=== PATIENT | female | born 1975 ===

== ENCOUNTER 2017-08-26 07:55 | Emergency (ER) | payer BC, OTHER ==
[2017-08-26 08:10] VITALS: BP 106/65; PULSE 63; RESP 16; TEMP 98.8; O2SAT 100; BMI 28.5
--- NOTE | 2017-08-26 08:48 | ED PDOC ---
Lower Extremity Pain/Injury Time Seen by Provider: 08/26/17 08:21 Chief Complaint (Nursing): Lower Extremity Problem/Injury Chief Complaint (Provider): Lower Extremity Problem/Injury History Per: Patient History/Exam Limitations: no limitations Onset/Duration Of Symptoms: Other (x2 weeks) Current Symptoms Are (Timing): Still Present Additional Complaint(s): 41 y/o female presents to the ED for evaluation right knee and right ankle injury s/p fall x 2 weeks. Reports inversion injury to the right ankle followed by fall on right knee. Patient has been ambulating and going to work but pain still continues. Denies any further medical complaints. PMD: Sahil Jimenez MD - Knee Description Of Injury: Fell - Ankle/Foot Description Of Injury: Fell Past Medical History Reviewed: Historical Data, Nursing Documentation, Vital Signs Vital Signs: Last Vital Signs Temp 98.8 F 08/26/17 08:04 Pulse 63 08/26/17 08:04 Resp 16 08/26/17 08:04 BP 106/65 08/26/17 08:04 Pulse Ox 100 08/26/17 08:04 - Medical History PMH: Denies: Chronic Kidney Disease Other PMH: Prediabetes - Surgical History Surgical History: ( x2) - Family History Family History: States: Unknown Family Hx - Social History Current smoker - smoking cessation education provided: No Alcohol: None Drugs: Denies - Home Medications Home Medications: Ambulatory Orders Medication Instructions Recorded oxyCODONE/Acetaminophen [Percocet 1 tab PO Q4 PRN #0 tab 02/13/15 5/325 mg Tab] oxyCODONE/Acetaminophen [Percocet 1 ea PO Q6 PRN #10 tab 04/27/16 5/325 mg Tab] Naproxen [Naprosyn] 500 mg PO Q12H #20 tab 08/26/17 - Allergies Allergies/Adverse Reactions: Allergies Allergy/AdvReac Type Severity Reaction Status Date / Time chickpeas Allergy RASH Uncoded 04/27/16 14:46 Review of Systems ROS Statement: Except As Marked, All Systems Reviewed And Found Negative (As per HPI, otherwise negative) Musculoskeletal: Positive for: Leg Pain (Right knee and right ankle pain) Physical Exam - Reviewed Nursing Documentation Reviewed: Yes Vital Signs Reviewed: Yes - Physical Exam Appears: Positive for: Non-toxic, No Acute Distress Head Exam: Positive for: ATRAUMATIC, NORMAL INSPECTION, NORMOCEPHALIC Skin: Positive for: Normal Color, Warm, Dry Eye Exam: Positive for: EOMI, Normal appearance, PERRL ENT: Positive for: Normal ENT Inspection Neck: Positive for: Normal, Painless ROM, Supple Cardiovascular/Chest: Positive for: Regular Rate, Rhythm. Negative for: Murmur Respiratory: Positive for: Normal Breath Sounds. Negative for: Accessory Muscle Use, Respiratory Distress Gastrointestinal/Abdominal: Positive for: Normal Exam, Soft. Negative for: Tenderness Back: Positive for: Normal Inspection Neurologic/Psych: Positive for: Alert, enrollment representative II-XII, Oriented (x3). Negative for : Motor/Sensory Deficits Comments: Right knee: (+)Mild ecchymosis near patellar region, (+) full ROM (-) swelling, (-) deformity, (-) instability Right ankle: (-) swelling, (-) ecchymosis, (-)tenderness Right foot: (-) no lateral swelling, (-) tenderness - ECG O2 Sat by Pulse Oximetry: 100 (RA) Pulse Ox Interpretation: Normal Medical Decision Making Medical Decision Making: Time: 08:39 Initial Impression: Right knee and ankle pain s/p fall Plan: Knee x-ray Right ankle x-ray Right foot x-ray Scribe Attestation: Documented by Evaristo Schaefer acting as a scribe Obie Martinez MD. Scribe Attestation: All medical record entries made by the Scribe were at my direction and personally dictated by me. I have reviewed the chart and agree that the record accurately reflects my personal performance of the history, physical exam, medical decision making, and the department course for this patient. I have also personally directed, reviewed, and agree with the discharge instructions and disposition. Disposition - Clinical Impression Clinical Impression: Knee sprain, Ankle sprain - Patient ED Disposition Is Patient to be Admitted: No - Disposition Referrals: Holger Crowley III, MD [Staff Provider] - Disposition: Routine/Home Disposition Time: 09:27 Condition: FAIR Prescriptions: Naproxen [Naprosyn] 500 mg PO Q12H #20 tab Instructions: Ankle Sprain (DC), Knee Sprain (DC) Forms: [employer] (Paraguayan) Print Language: SERBIAN
--- NOTE | 2017-08-26 09:33 | RAD ---
PROCEDURE: Right Ankle Radiographs. HISTORY: trauma COMPARISON: Comparison made with radiographs right ankle 08/26/2017. FINDINGS: BONES: No evidence of acute displaced fracture nor dislocation. Talar dome intact. JOINTS: Ankle mortise maintained. No significant osteoarthritis. . SOFT TISSUES: No significant soft tissue swelling OTHER FINDINGS: None. IMPRESSION: No evidence of acute displaced fracture nor dislocation.
--- NOTE | 2017-08-26 10:22 | RAD ---
PROCEDURE: Right Knee Radiographs. HISTORY: Trauma COMPARISON: None. FINDINGS: BONES: Normal. No fracture. JOINTS: Normal. No osteoarthritis. JOINT EFFUSION: None. OTHER FINDINGS: None. IMPRESSION: Normal radiographs of the right knee.
--- NOTE | 2017-08-26 10:25 | RAD ---
PROCEDURE: Right Foot Radiographs. HISTORY: Trauma COMPARISON: None. FINDINGS: BONES: No evidence displaced fracture nor dislocation. The osseous structures appear intact. Small plantar surface calcaneal enthesophyte. JOINTS: Joint spaces preserved. No significant osteoarthritis SOFT TISSUES: Soft tissues appear grossly unremarkable. OTHER FINDINGS: None. IMPRESSION: No evidence of acute displaced fracture nor dislocation.
== END 2017-08-26 09:51 | disposition home or self-care (01) ==
LOC: H.ER 07:55
DX: S83.91XA Sprain of unspecified site of right knee, initial encounter (principal); S93.401A Sprain of unspecified ligament of right ankle, initial encounter; W19.XXXA Unspecified fall, initial encounter; Y92.89 Other specified places as the place of occurrence of the external cause; R73.03 Prediabetes